=== PATIENT | male | born 1990 | race Caucasian/White ===

== ENCOUNTER 2016-07-31 00:40 | Emergency (ER) | payer BC ==
[~2016-07-31] VITALS: Ht 200.7 cm; Wt 106.6 kg
[2016-07-31 01:24] LABS: ABSOLUTE NEUTROPHILS 3.9 thou/uL (1.4-8.2); BASOPHILS 0.6 % (0.0-2.0); EOSINOPHILS 2.7 % (0.0-3.0); HEMATOCRIT 41.9 % (42.0-52.0); HEMOGLOBIN 15.1 gm/dL (14.0-18.0); LYMPHOCYTES 36.7 % (24.0-44.0); MCH 32.4 pg (26.0-34.0); MCHC 35.9 g/dL (28.0-37.0); MCV 90.3 fL (80.0-100.0); MONOCYTES 8.6 % (1.0-8.0); PLATELET COUNT 185 thou/uL (150-400); POLYS 51.4 % (36.0-66.0); RBC 4.64 mil/uL (4.50-6.00); RDW 13.5 % (10.5-14.5); WBC 7.6 thou/uL (4.0-11.0)
[2016-07-31 01:25] LABS: MANUAL DIFF NO
[2016-07-31 01:33] LABS: POTASSIUM 3.9 mmol/L (3.5-5.1)
[2016-07-31] MEDS ORDERED: NORCO 5-325 TA1 EACH PO (02:58)
[2016-07-31] MEDS ORDERED: PREDNISONE 20 M20 MG PO (02:58)
[2016-07-31 03:17] VITALS: BP 142/85
[2016-07-31 05:23] LABS: ANISOCYTOSIS SLIGHT; MACROCYTES SLIGHT
== END 2016-07-31 03:17 | disposition home or self-care (01) ==
LOC: ER 00:40
PROVIDERS: Emergency Medicine
DX: M70.52 Other bursitis of knee, left knee (principal); F17.210 Nicotine dependence, cigarettes, uncomplicated; Z88.1 Allergy status to other antibiotic agents; Z88.6 Allergy status to analgesic agent; Z86.14 Personal history of Methicillin resistant Staphylococcus aureus infection; Y93.89 Activity, other specified